=== PATIENT | female | born 1985 | race Two or more races ===

== ENCOUNTER 2020-10-07 13:30 | Inpatient (IN) | payer OTHER ==
[~2020-10-07] VITALS: Ht 160 cm; Wt 75.7 kg
[2020-10-28] MEDS ORDERED: PRENATAL CAPLE1 EAC1 (07:06)
== END 2020-10-30 11:52 | disposition home or self-care (01) | DRG 798 ==
LOC: LDR 10-28 05:25 → SURG-SUITE 10-28 05:25 → LDR 10-29 13:30 → SURG-SUITE 10-30 11:52
PROVIDERS: ADMIT Obstetrics & Gynecology Maternal & Fetal Medicine; ATTEND Obstetrics & Gynecology Maternal & Fetal Medicine
PROC: 0UB70ZZ Excision of Bilateral Fallopian Tubes, Open Approach (ICD-10-PCS; 2020-10-28)
PROC: 0KQM0ZZ Repair Perineum Muscle, Open Approach (ICD-10-PCS; 2020-10-28)
PROC: 10907ZC Drainage of Amniotic Fluid, Therapeutic from Products of Conception, Via Natural or Artificial Opening (ICD-10-PCS; 2020-10-28)
PROC: 3E033VJ Introduction of Other Hormone into Peripheral Vein, Percutaneous Approach (ICD-10-PCS; 2020-10-28)
PROC: 4A1HXFZ Monitoring of Products of Conception, Cardiac Rhythm, External Approach (ICD-10-PCS; 2020-10-28)
PROC: 10E0XZZ Delivery of Products of Conception, External Approach (ICD-10-PCS; principal; 2020-10-28 14:00)
DX: O70.1 Second degree perineal laceration during delivery (principal); Z37.0 Single live birth; Z30.2 Encounter for sterilization; Z3A.39 39 weeks gestation of pregnancy; Z20.822 Contact with and (suspected) exposure to COVID-19

== ENCOUNTER 2020-10-26 07:17 | Outpatient (CLI) | payer OTHER | END 2020-10-26 08:32 | disposition home or self-care (01) | LOC: NST 07:17 | PROVIDERS: ATTEND Obstetrics & Gynecology | DX: Z34.83 Encounter for supervision of other normal pregnancy, third trimester (principal) ==